=== PATIENT | male | born 1940 | race Caucasian/White ===

== ENCOUNTER 2019-04-11 11:55 | Emergency (ER) | payer BC, MEDICARE, OTHER ==
--- OUTSIDE RECORDS SUMMARY | 2019-04-11 12:09 | XMS REPORT | Continuity of Care Document ---
:1940 External Reference #:[id number] Author Name Chung Rodriguez MD Address [address] [place] [address] Care Team Providers Name Role Phone Eliane Faye DMD - Dentist Care Team Information Printer Assistant Vesna Dya MD - Family Care Team Information Printer Assistant Medicine Problems Active Problems Provider Date Allergy status to penicillin Chung Rodriguez MD Onset: 03/31/2019 Social History Type Date Description Comments Sex Unknown Tobacco Use Start: Unknown Patient has never smoked Smoking Status Reviewed: 03/31/19 Patient has never smoked Allergies, Adverse Reactions, Alerts Active Allergies Reaction Severity Comments Date Clindamycin 03/31/2019 Inactive Allergies NKDA 03/31/2019 Medications Active Medications SIG Qnty Indications Ordering Provider Date Co-Enzyme Q-10 2 by mouth every 30caps Chung Rodriguez 03/31/2019 100mg day MD [facility] Capsules See Scanned Chung Rodriguez 03/31/2019 Medication List. MD [facility] Amoxicillin for supervised 100ml Z88.0 Chung Rodriguez 03/31/2019 200mg/5ML oral challenge in MD [facility] Suspension Rec the office. Atorvastatin Calcium Unknown 40mg Tablets Aspirin 81 1 by mouth every Unknown 81mg day - otc Tablets Vitamin D-3 Unknown 5000Unit Tablets Vitamin K2 Unknown 100mcg Capsules Tocotrienols Unknown 50% Suspension Lutein Unknown 20mg Capsules Immunizations Description No Information Available Vital Signs Date Vital Result Comment 03/31/2019 2:04pm BP Systolic 96 mmHg BP Diastolic 64 mmHg Height 67 inches 5'7" Weight 165.00 lb BMI (Body Mass Index) 25.8 kg/m2 Heart Rate 82 /min Respiratory Rate 16 /min O2 % BldC Oximetry 95 % Results Test Date Facility Test Result H/L Range Note Order 03/31/2019 [facility] Intradermal <pending> Drug/Venom Procedures Date Code Description Status 03/31/2019 88690 Allergy Testing Any Combination Of Percutaneous W/Drugs Completed Medical Devices Description No Information Available Encounters Description No Information Available Assessments Date Code Description Provider 03/31/2019 Z88.0 Allergy status to penicillin Chung Rodriguez MD Plan of Treatment 03/31/2019 - Chung Rodriguez MDZ88.0 Allergy status to penicillinNew Medication:Amoxicillin 200 mg/5ML - for supervised oral challenge in the office. Functional Status Description No Information Available Mental Status Description No Information Available Referrals Description No Information Available
--- OUTSIDE RECORDS SUMMARY | 2019-04-11 12:09 | XMS REPORT | Continuity of Care Document ---
:1940 External Reference #:[id number] Author Name Becky Torrez Care Team Providers Name Role Phone Eliane Faye DMD - Dentist Care Team Information Deputy Jailer Vesna Day MD - Family Care Team Information Deputy Jailer Medicine Problems Active Problems Provider Date Allergy status to penicillin Chnug Rodriguez MD Onset: 03/31/2019 Social History Type [...] every Unknown 81mg day - otc Tablets DR Vitamin D-3 Unknown 5000Unit Tablets Vitamin K2 Unknown 100mcg Capsules Tocotrienols Unknown 50% Suspension Lutein Unknown 20mg Capsules Immunizations Description No Information Available Vital Signs Date Vital Result Comment 04/02/2019 2:07pm BP Systolic 137 mmHg BP Diastolic 76 mmHg Height 67 inches 5'7" Weight 165.00 lb BMI (Body Mass Index) 25.8 kg/m2 Heart Rate 83 /min O2 % BldC Oximetry 96 % 03/31/2019 2:04pm BP Systolic 96 mmHg BP Diastolic 64 mmHg Height 67 inches 5'7" Weight 165.00 lb BMI (Body Mass Index) 25.8 kg/m2 Heart Rate 82 /min Respiratory Rate 16 /min O2 % BldC Oximetry 95 % Results Test Date Facility Test Result H/L Range Note Order 03/31/2019 [facility] Intradermal <pending> Drug/Venom Procedures Date Code Description Status 03/31/2019 44528 Allergy Testing Any Combination Of Percutaneous W/Drugs Completed Medical Devices Description No Information Available Encounters Type Date Location Provider Dx Diagnosis Office Visit 03/31/2019 [place] Chung Rodriguez Z88.0 Allergy status to 2:00p penicillin Assessments Date Code Description Provider 03/31/2019 Z88.0 Allergy status to penicillin Chung Rodriguez MD Plan of Treatment 03/31/2019 - Chung Rodriguez MDZ88.0 Allergy status to penicillinNew Medication:Amoxicillin 200 mg/5ML - for supervised oral challenge in the office. Functional Status Description No Information Available Mental Status Description No Information Available Referrals Description No Information Available
--- OUTSIDE RECORDS SUMMARY | 2019-04-11 12:09 | XMS REPORT | Continuity of Care Document ---
:1940 External Reference #:[id number] Author Name Vesna Day MD Address [address] [place] [id number] Care Team Providers Name Role Phone Jace Ruthjeev Care Team Information Waterproofing Machine Operator [phone] Emmanuel Torres - Orthopaedic Care Team Information Waterproofing Machine Operator [facility] [place] - Pain Care Team Information Waterproofing Machine Operator Medicine [facility] Care Team Information Waterproofing Machine Operator Diana Scott - Gastroenterology Care Team Information Waterproofing Machine Operator [facility] Care Team Information Waterproofing Machine Operator [phone] Casimiro Walden - Orthopaedic Surgery Care Team Information Waterproofing Machine Operator [phone] Pratibha Rodriguez MD - Cardiovascular Care Team Information Waterproofing Machine Operator Disease Douglas Erazo - Cardiovascular Care Team Information Waterproofing Machine Operator [phone] Disease Problems Active Problems Provider Date Sciatica Vesna Day MD Onset: 12/21/2011 Hypervitaminosis D Vesna Day MD Onset: 06/19/2011 Bundle branch block Vesna Day MD Onset: 12/15/2010 Herpes zoster with complication Vesna Day MD Onset: 12/07/2008 Benign prostatic hypertrophy without outflow Vesna Day MD Onset: 11/2007 obstruction Raised prostate specific antigen Mackenzie Lainez MD Onset: 12/25/2006 Contact dermatitis due to non-medicinal Vesna Day MD Onset: 2004 chemical Benign neoplasm of colon Vesna Day MD Onset: 05/15/2005 Right bundle branch block Vesna Day MD Onset: 05/13/2005 Mixed hyperlipidemia Vesna Day MD Onset: 05/13/2005 Sarcoidosis Vesna Day MD Onset: 03/27/2018 Gastroesophageal reflux disease Vesna Day MD Onset: 03/27/2018 Chronic kidney disease stage 3 Vesna Day MD Onset: 03/27/2018 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 Family history of prostate cancer Vesna Day MD Onset: 06/24/2018 Hearing loss Vesna Day MD Onset: 06/24/2018 Coronary arteriosclerosis Vesna Day MD Onset: 12/26/2018 History of coronary artery bypass grafting Vesna Day MD Onset: 2018 Prosthetic arthroplasty of the hip Vesna Day MD Onset: 12/26/2018 Social History Type Date Description Comments Sex Unknown ETOH Use Occasionally consumes alcohol Tobacco Use Start: Unknown Patient has never smoked Recreational Drug Use Denies Drug Use Smoking Status Reviewed: 06/24/18 Patient has never smoked Exercise Type/Frequency Exercises regularly Exercises regularly, 06/30/2014 coiunselled 150min per week, 10k steps per day Smoke Alarms Yes Allergies, Adverse Reactions, Alerts Active Allergies Reaction Severity Comments Date Demerol Extreme vomitting 06/26/2016 Gluten 03/27/2018 Pineapple 03/27/2018 Peanuts 03/27/2018 Tomatoes 03/27/2018 coffee 12/26/2018 Potatoes 12/26/2018 Shrimp 12/26/2018 TUNA 12/26/2018 Bananas 12/26/2018 [place] 12/26/2018 Oranges 12/26/2018 Pork-Derived Products 12/26/2018 Metoprolol Hypotension Severe 03/02/2019 Inactive Allergies NKDA 12/31/2014 Medications Active Medications SIG Qnty Indications Ordering Provider Date Aspirin Ec Low Dose 1 by mouth 30tabs E78.2 Vesna Day, 03/27/2019 81mg every day Tablets I25.10 Potassium Chloride ER 1 by mouth daily 90caps I25.10 Vesna Day MD 03/05/2019 10Meq Capsules ER Atorvastatin Calcium 1 by mouth every 90tabs E78.2 Vesna Day MD 40mg day Tablets I25.10 Bumetanide 1 po daily prn edema R60.9 Unknown 07/29/2018 1mg Tablets Co Q10 1 by mouth every day 90caps E78.2 Vesna Day, 12/31/2014 200mg Capsules MD Magnesium Magnesium/ L/ Vesna Day, 12/31/2014 500mg Capsules Threonate 1 by mouth every day Multivitamin Adult 7 tabs by mouth Unknown Tablets every day Vitamin C Unknown Vitamin A qd Unknown 8000Unit Capsules Vitamin D 1 by mouth every day Unknown 2000Unit Capsules [facility] Natural Fish Oil Unknown 1000mg Capsules Vitamin B-12 1 by mouth every day Unknown Natural 500mcg Tablets [facility] Natural Lutein Eye Unknown Health 20mg Capsules Potassium Chloride Cristy TK 1 T PO qd In The Unknown ER Morning For 5 Days 20Meq Tablets ER Immunizations CPT Code Status Date Vaccine Reaction Lot # [id number] Given 05/30/2018 Fluzone Highdose Age 65 And Over Preservative & Antibiotic Free Q2036 Given 04/04/2017 Flulaval Immunization [facility] 47765 Given 04/12/2016 Fluzone Highdose Age 65 And Over Preservative & Antibiotic Free 92090 Given 04/08/2015 Fluzone Highdose Age 65 And Over RA Preservative & Antibiotic Free 98407 Given 12/31/2014 Prevnar 13 Pneumococal Conjugate Vaccine [id number] 58798 Given 03/08/2014 Afluria Or Fluvirin Flu Vac Intramuscular 08684 Given 07/01/2013 Tdap (Adacel) Ages 7 And Above Only 33036 Given 04/17/2012 Afluria Or Fluvirin Flu Vac Intramuscular 66086 Given 04/17/2011 Code For Flu Shot 69553 Given 04/05/2010 Afluria Or Fluvirin Flu Vac Intramuscular 23842 Given 12/03/2008 Pneumococcal 23 Immunization Adult Or Immunosuppressed Patient 15882 Given 03/02/2008 Tetanus And Diptheria Toxoids For Adult Use-preservative free 67161 Given 12/25/2006 Pneumococcal 23 Immunization Adult Or Immunosuppressed Patient 61359 Given 06/06/2006 Afluria Or Fluvirin Flu Vac Intramuscular 07069 Given 07/29/1997 Tetanus And Diptheria Toxoids For Adult Use-preservative free Q2039 Refused 03/02/2019 Flu Vaccine NOS will get in fall 92383 Refused 06/24/2018 Shingrix (Shingles) Zoster Vaccine will get in [place] HZV, Recombinant, Subunit, Adj [id number] Refused 06/21/2015 Zoster (Zostavax) Vital Signs Date Vital Result Comment 03/27/2019 1:00pm Weight 167.00 lb Heart Rate 76 /min BP Systolic 120 mmHg BP Diastolic 64 mmHg Respiratory Rate 14 /min Height 67 inches 5'7" BMI (Body Mass Index) 26.2 kg/m2 03/02/2019 1:48pm Weight 172.00 lb Heart Rate 78 /min BP Systolic 112 mmHg BP Diastolic 62 mmHg Respiratory Rate 16 /min Height 67 inches 5'7" BMI (Body Mass Index) 26.9 kg/m2 Results Test Date Facility Test Result H/L Range Note Comprehensive Met Panel-[facility] 03/20/2019 [facility] Sodium 141 mmol/L 135- 146 1, 2 Potassium 4.1 mmol/L 3.5-5.2 Chloride# 104 mmol/L 97-110 3 Carbon Dioxide 29 mmol/L 24-34 Calcium 9.8 mg/dL 8.5-10.5 4 Glucose 93 mg/dL 70-105 BUN 18 mg/dL 6-26 Creatinine 1.4 mg/dL 0.5-1.4 Total Protein 6.4 g/dL 6.0-8.0 Albumin 4.1 g/dL 3.6-4.9 Globulin 2.3 g/dL 2.0-3.5 A/G Ratio 1.8 Ratio 1.0-2.2 Total Bilirubin 0.6 mg/dL 0.1-1.3 Alkaline Phosphatase 107 U/L 24-140 Alt 33 U/L 3-42 Ast 31 U/L 8-42 Anion Gap 8 mmol/L 5-15 5 Female Egfr 36 Low >60 6 Male Egfr 48 Low >60 7 Laboratory test finding 03/20/2019 [facility] CPK 75 U/L 12-199 Lipid 03/20/2019 [facility] Cholesterol 167 mg/dL 50-199 Triglycerides 70 mg/dL 30-200 HDL 65 mg/dL 29-71 8 Chol/ HDL Ratio 2.6 ratio Low 4.0-6.7 VLDL 14 mg/dL 2-29 LDL (Calc) 88 mg/dL 20-99 9 Laboratory test finding 03/20/2019 [facility] TSH 4.79 uIU/mL 0.35-4.94 CBC with Auto Diff-[facility] 03/20/2019 [facility] WBC 5.2 K/uL 4.1-11.0 RBC 4.39 M/uL Low 4.60-6.10 Hemoglobin 14.9 gm/dL 13.5-18.0 Hematocrit 42.9 % 41.0-53.0 MCV 97.9 fL High 80.0-97.0 MCH 33.9 pg High 27.0-32.0 MCHC 34.6 g/dL 32.0-36.0 RDW 15.2 % High 11.5-14.5 PLT Count 189 K/ul 140-400 MPV 9.5 FL 7.1-10.7 Neutrophil 68.3 % 35.0-75.0 Lymphocyte 13.0 % Low 16.0-52.0 Monocyte 12.3 % High 2.0-10.0 Eosinophil 5.7 % High 0.0-5.0 Basophil 0.7 % 0.0-4.0 Abs Neutrophils 3.5 K/uL 2.1-8.0 Abs Lymphocytes 0.7 K/uL Low 0.8-5.5 Abs Monocytes 0.6 K/uL 0.1-1.0 Abs Eosinophils 0.3 K/uL 0.0-0.5 Abs Basophils 0.0 K/uL 0.0-0.3 Laboratory test finding 03/20/2019 [facility] Iron, Total 74 g/dL 65-175 Comprehensive Met 03/02/2019 [facility] Sodium 138 mmol/L 135-146 10, 11 Panel[facility] Potassium 3.4 mmol/L Low 3.5-5.2 Chloride# 103 mmol/L 97-110 12 Carbon Dioxide 27 mmol/L 24-34 Calcium 8.8 mg/dL 8.5-10.5 13 Glucose 93 mg/dL 70-105 BUN 15 mg/dL 6-26 Creatinine 1.3 mg/dL 0.5-1.4 Total Protein 5.5 g/dL Low 6.0-8.0 Albumin 3.4 g/dL Low 3.6-4.9 Globulin 2.1 g/dL 2.0-3.5 A/G Ratio 1.6 Ratio 1.0-2.2 Total Bilirubin 0.8 mg/dL 0.1-1.3 Alkaline Phosphatase 130 U/L 24-140 Alt 96 U/L High 3-42 Ast 71 U/L High 8-42 Anion Gap 8 mmol/L 5-15 14 Female Egfr 38 Low >60 15 Male Egfr 51 Low >60 16 Laboratory test finding 02/27/2019 [facility] CK 85 U/L Normal 39-308 17 (315)- - Troponin-I < 0.015 ng/mL 18 Comprehensive Metabolic 02/27/2019 [facility] Glucose 121 mg/dL High 74-106 Panel (315)- - BUN 24 mg/dL High 7-18 Creatinine 1.8 mg/dL High 0.6-1.3 Glom Filtration Rate, Estimate 39 mL/min >60 If 47 mL/min >60 19 BUN/Creat 13.3 ratio Sodium 139 mmol/L Normal 136-145 Potassium 3.6 mmol/L Normal 3.5-5.1 Chloride 103 mmol/L Normal 98-107 Carbon Dioxide 30 mmol/L Normal 21-32 Anion Gap 6 mEq/L Low 8-16 Calcium 9.4 mg/dL Normal 8.5-10.1 Total Protein 6.4 g/dL Normal 6.4-8.2 Albumin 3.3 g/dL Low 3.4-5.0 Globulin 3.1 g/dL Normal 1.9-4.3 Alb/Glob 1.1 ratio Bilirubin,Total 1.0 mg/dL Normal 0.2-1.0 Sgot/Ast 159 U/L High 15-37 SGPT/Alt 177 U/L High 12-78 Alkaline Phosphatase 186 U/L High 45-117 CBS W/Automated 02/27/2019 [facility] White Blood 7.6 K/ uL Normal 3.4-10.5 Diff (315)- - Count Red Blood Count 4.21 M/uL Normal 4.20-5.80 Hemoglobin 14.1 gm/dL Normal 12.8-17.0 Hematocrit 41.2 % Normal 38.0-48.0 Mean Cell Volume 97.9 fl High 80.0-96.0 Mean Corpuscular HGB 33.5 pg High 27.0-33.0 Mean Corpuscular HGB Conc 34.2 g/dL Normal 31.7-36.0 Platelet Count 134 K/uL Low 155-360 Red Cell Distri Width SD 54.9 fl High 36-51 Red Cell Distri Width %CV 15.3 % Normal 11.6-15.8 Mean Platelet Volume 11.3 fl High 6.6-10.6 Neut% 74.4 % High 33.0-73.0 Lymph % 10.8 % Low 20.0-42.0 Pope % 8.7 % Normal 0.0-10.0 Eo% 5.3 % Normal 0.0-6.6 Bas% 0.4 % Normal 0.0-1.1 Immature Grans 0.4 % Normal 0.0-5.0 NRBC % 0.0 /100WBC < 10/ 100 WBC Neut# 5.66 K/uL Normal 1.8-7.0 Lymph # 0.82 K/uL Low 1.0-4.0 Pope # 0.66 K/uL Normal 0.0-0.8 Eos # 0.40 K/uL Normal 0.0-0.5 Baso # 0.03 K/uL Normal 0.0-0.1 Immature Grans Absolute 0.03 K/uL NRBC # 0.00 K/uL Ua RFX Micro & 02/27/2019 [facility] Urine Color YELLOW Yellow Culture II (315)- - Urine Clarity CLEAR Clear Urine Glucose - Dipstick NEGATIVE mg/dL Negative Urine Bilirubin - Dipstick NEGATIVE Negative Urine Ketone TRACE mg/dL High Negative Urine Specific [place] 1.010 Normal 1.010-1.030 Urine Blood NEGATIVE Negative Urine PH 6.5 Normal 6.5-7.5 Urine Protein - Dipstick NEGATIVE mg/dL Negative Urine Urobilinogen - Dipstick 0.2 E.U./dL Normal 0.2-1.0 Urine Nitrite - Dipstick NEGATIVE Negative Urine Leuk Esterase NEGATIVE Negative Source: URINE, CLEAN CAT <SEE NOTE> 20 Laboratory test finding 12/26/2018 [facility] TSH 4.28 uIU/mL 0.35-4.94 21 CBC with Auto Diff-[facility] 12/26/2018 [facility] WBC 8.0 K/uL 4.1-11.0 RBC 4.37 M/uL Low 4.60-6.10 Hemoglobin 13.7 gm/dL 13.5-18.0 Hematocrit 40.6 % Low 41.0-53.0 MCV 92.9 fL 80.0-97.0 MCH 31.3 pg 27.0-32.0 MCHC 33.7 g/dL 32.0-36.0 RDW 18.5 % High 11.5-14.5 PLT Count 179 K/ul 140-400 MPV 10.1 FL 7.1-10.7 Neutrophil 79.5 % High 35.0-75.0 Lymphocyte 8.7 % Low 16.0-52.0 Monocyte 9.1 % 2.0-10.0 Eosinophil 1.6 % 0.0-5.0 Basophil 1.1 % 0.0-4.0 Abs Neutrophils 6.3 K/uL 2.1-8.0 Abs Lymphocytes 0.7 K/uL Low 0.8-5.5 Abs Monocytes 0.7 K/uL 0.1-1.0 Abs Eosinophils 0.1 K/uL 0.0-0.5 Abs Basophils 0.1 K/uL 0.0-0.3 Iron Panel 12/26/2018 [facility] Iron, Total 87 g/dL 65-175 Transferrin 218.0 mg/dL 203.0-362.0 Tibc (calc) 305 g/dL 261-478 % Iron Saturation 28.5 % 13.0-45.0 Comprehensive Met Panel[place] 12/19/2018 [facility] Sodium 139 mmol/L 135- 146 22, 23 Potassium 4.3 mmol/L 3.5-5.2 Chloride# 102 mmol/L 97-110 24 Carbon Dioxide 26 mmol/L 24-34 Calcium 9.6 mg/dL 8.5-10.5 25 Glucose 96 mg/dL 70-105 BUN 23 mg/dL 6-26 Creatinine 1.6 mg/dL High 0.5-1.4 Total Protein 6.4 g/dL 6.0-8.0 Albumin 4.1 g/dL 3.6-4.9 Globulin 2.3 g/dL 2.0-3.5 A/G Ratio 1.8 Ratio 1.0-2.2 Total Bilirubin 0.5 mg/dL 0.1-1.3 Alkaline Phosphatase 83 U/L 24-140 Alt 35 U/L 3-42 Ast 34 U/L 8-42 Anion Gap 11 mmol/L 5-15 26 Female Egfr 30 Low >60 27 Male Egfr 40 Low >60 28 Lipid 12/19/2018 [facility] Cholesterol 122 mg/dL 50-199 Triglycerides 84 mg/dL 30-200 HDL 48 mg/dL 29-71 29 Chol/ HDL Ratio 2.5 ratio Low 4.0-6.7 VLDL 17 mg/dL 2-29 LDL (Calc) 57 mg/dL 20-99 30 CBC with Auto Diff-[facility] 12/19/2018 [facility] WBC 5.9 K/uL 4.1-11.0 RBC 4.41 M/uL Low 4.60-6.10 Hemoglobin 13.9 gm/dL 13.5-18.0 Hematocrit 40.6 % Low 41.0-53.0 MCV 92.2 fL 80.0-97.0 MCH 31.5 pg 27.0-32.0 MCHC 34.2 g/dL 32.0-36.0 RDW 18.1 % High 11.5-14.5 PLT Count 179 K/ul 140-400 MPV 10.5 FL 7.1-10.7 Neutrophil 71.2 % 35.0-75.0 Lymphocyte 11.6 % Low 16.0-52.0 Monocyte 11.9 % High 2.0-10.0 Eosinophil 4.7 % 0.0-5.0 Basophil 0.6 % 0.0-4.0 Abs Neutrophils 4.2 K/uL 2.1-8.0 Abs Lymphocytes 0.7 K/uL Low 0.8-5.5 Abs Monocytes 0.7 K/uL 0.1-1.0 Abs Eosinophils 0.3 K/uL 0.0-0.5 Abs Basophils 0.0 K/uL 0.0-0.3 Laboratory test finding 12/19/2018 [facility] Ang Convert Enz BLD 30 U/L 31 1 before visit 02/2019 2 Updated reference range on new analyzer 3 Updated reference range on new analyzer 4 Updated reference range 11-26-2018 5 Updated Reference Range 6 Concerning GFR Guidelines for Americans: Normal function or mild renal disease, if clinically at risk: >/= 60 mL/min Moderately decreased: 30-59 Severely decreased: 15-29 Renal failure: <15 There is reduced accuracy above 60ml/min/1.73 m squared, but the numeric value may be clinically useful in the near 60 range 7 Concerning GFR Guidelines: Normal function or mild renal disease, if clinically at risk: >/= 60 mL/min Moderately decreased: 30-59 Severely decreased: 15-29 Renal failure: <15 There is reduced accuracy above 60ml/min/1.73 m squared, but the numeric value may be clinically useful in the near 60 range Glomerular Filtration Rate (GFR) is estimated based on the CKD-EPI equation, which assumes a steady state for creatinine as recommended by the National Kidney Disease Education Program in conjunction with the National Institutes of Health and the National Kidney Foundation. Clinical conditions in which it may be necessary to measure GFR by using clearance methods include extremes of age and body size, severe malnutrition or obesity, diseases of skeletal muscle, paraplegia or quadriplegia, vegetarian diet, rapidly changing kidney function, and calculation of the dose of potentially toxic drugs that are excreted by the kidneys. 8 Per NCEP ATP III Guidelines: Results lower than 40 mg/dL are suggestive of increased risk for coronary artery disease. Results > or = to 60 mg/dL are considered a negative risk factor. 9 Per NCEP ATP III Guidelines: Normal Population <130 Patients with medical conditions: CHD/DM Optimal: <100 Borderline high: 130-159 High: 160-189 Very high: >189 10 tody letter 11 Updated reference range on new analyzer 12 Updated reference range on new analyzer 13 Updated reference range 11-26-2018 14 Updated Reference Range 15 Concerning GFR Guidelines for Americans: Normal function or mild renal disease, if clinically at risk: >/= 60 mL/min Moderately decreased: 30-59 Severely decreased: 15-29 Renal failure: <15 There is reduced accuracy above 60ml/min/1.73 m squared, but the numeric value may be clinically useful in the near 60 range 16 Concerning GFR Guidelines: Normal function or mild renal disease, if clinically at risk: >/= 60 mL/min Moderately decreased: 30-59 Severely decreased: 15-29 Renal failure: <15 There is reduced accuracy above 60ml/min/1.73 m squared, but the numeric value may be clinically useful in the near 60 range Glomerular Filtration Rate (GFR) is estimated based on the CKD-EPI equation, which assumes a steady state for creatinine as recommended by the National Kidney Disease Education Program in conjunction with the National Institutes of Health and the National Kidney Foundation. Clinical conditions in which it may be necessary to measure GFR by using clearance methods include extremes of age and body size, severe malnutrition or obesity, diseases of skeletal muscle, paraplegia or quadriplegia, vegetarian diet, rapidly changing kidney function, and calculation of the dose of potentially toxic drugs that are excreted by the kidneys. 17 LOW BLOOD PRESSURE, DR CHERELLE OLSON FULL BLOOD WORK 18 0.0 - 0.045 ng/mL: Normal 0.046 - 0.5 ng/mL: Suggestive 0.6 - 1.5 ng/mL: Consistent 19 Note: Persistent reduction for 3 months or more in an eGFR <60 mL/min/1.73 m2 defines CKD. Patients with eGFR values >/=60 mL/min/1.73 m2 may also have CKD if evidence of persistent proteinuria is present. The original MDRD equation for estimated GFR is not valid for patients less than 18 years of age. Additional information may be found at www.kdoqi.org. 20 URINE, CLEAN CATCH 21 now in net 1-2 weeks 22 -F [phone] P PLEASE CC TO DR BARDALES 23 Updated reference range on new analyzer 24 Updated reference range on new analyzer 25 Updated reference range 11-26-2018 26 Updated Reference Range 27 Concerning GFR Guidelines for Americans: Normal function or mild renal disease, if clinically at risk: >/= 60 mL/min Moderately decreased: 30-59 Severely decreased: 15-29 Renal failure: <15 There is reduced accuracy above 60ml/min/1.73 m squared, but the numeric value may be clinically useful in the near 60 range 28 Concerning GFR Guidelines: Normal function or mild renal disease, if clinically at risk: >/= 60 mL/min Moderately decreased: 30-59 Severely decreased: 15-29 Renal failure: <15 There is reduced accuracy above 60ml/min/1.73 m squared, but the numeric value may be clinically useful in the near 60 range Glomerular Filtration Rate (GFR) is estimated based on the CKD-EPI equation, which assumes a steady state for creatinine as recommended by the National Kidney Disease Education Program in conjunction with the National Institutes of Health and the National Kidney Foundation. Clinical conditions in which it may be necessary to measure GFR by using clearance methods include extremes of age and body size, severe malnutrition or obesity, diseases of skeletal muscle, paraplegia or quadriplegia, vegetarian diet, rapidly changing kidney function, and calculation of the dose of potentially toxic drugs that are excreted by the kidneys. 29 Per NCEP ATP III Guidelines: Results lower than 40 mg/dL are suggestive of increased risk for coronary artery disease. Results > or = to 60 mg/dL are considered a negative risk factor. 30 Per NCEP ATP III Guidelines: Normal Population <130 Patients with medical conditions: CHD/DM Optimal: <100 Borderline high: 130-159 High: 160-189 Very high: >189 31 Reference range: 9 to 67 Performed by [facility], [address] [place] [id number] [email or web address], Maksim Dias MD, Lab. Director Unless otherwise specified, testing performed by [facility] [address] [place] [address] Procedures Date Code Description Status 01/17/2017 [id number] Colonoscopy Completed Medical Devices Description No Information Available Encounters Type Date Location Provider Dx Diagnosis Office Visit 03/02/2019 [facility] Vesna Day, I95.9 Hypotension, 1:45p unspecified D86.0 Sarcoidosis of lung I25.10 Athscl heart disease of [place] coronary artery w/o ang pctrs R94.5 Abnormal results of liver function studies E86.0 Dehydration Z68.27 Body mass index (BMI) 27.0-27.9, adult Z68.26 Body mass index (BMI) 26.0-26.9, adult Office Visit 12/26/2018 1:15p [facility] Vesna Day MD I25.10 Athscl heart disease of [place] coronary artery w/o ang pctrs E78.2 Mixed hyperlipidemia D86.0 Sarcoidosis of lung K21.9 Gastro-esophageal reflux disease without esophagitis N18.3 Chronic kidney disease, stage 3 (moderate) M51.06 Intervertebral disc disorders with myelopathy, lumbar region N40.0 Benign prostatic hyperplasia without lower urinry tract symp Z95.1 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 Rash and other nonspecific skin eruption R60.9 Edema, unspecified Z68.26 Body mass index (BMI) 26.0-26.9, adult B02.8 Zoster with other complications Z96.642 Presence of LEFT artificial hip joint Assessments Date Code Description Provider 03/27/2019 I25.10 Atherosclerotic heart disease of [place] Vesna Day MD coronary artery with 03/27/2019 E78.2 Mixed hyperlipidemia Vesna Day MD 03/27/2019 D50.0 Iron deficiency anemia secondary to blood Vesna Day MD loss (chronic) 03/27/2019 D86.0 Sarcoidosis of lung Vesna Day MD 03/27/2019 K21.9 Gastro-esophageal reflux disease without Vesna Day MD esophagitis 03/27/2019 M51.06 Intervertebral disc disorders with Vesna Day MD myelopathy, lumbar region 03/27/2019 N40.0 Benign prostatic hyperplasia without lower Vesna Day MD urinary tract sym 03/27/2019 Z95.1 Presence of aortocoronary bypass graft Vesna Day MD 03/27/2019 N18.3 Chronic kidney disease, stage 3 (moderate) Vesna Day MD 03/27/2019 R60.9 Edema, unspecified Vesna Day MD 03/27/2019 E87.6 Hypokalemia Vesna Day MD 03/27/2019 Z68.26 Body mass index (BMI) 26.0-26.9, adult Vesan Day MD 03/20/2019 E78.2 Mixed hyperlipidemia Vesna Day MD 03/20/2019 E78.2 Mixed hyperlipidemia Schedule, Laboratory 03/20/2019 D50.0 Iron deficiency anemia secondary to blood Vesna Day MD loss (chronic) 03/20/2019 D50.0 Iron deficiency anemia secondary to blood Schedule, Laboratory loss (chronic) 03/20/2019 E78.2 Mixed hyperlipidemia [facility] 03/20/2019 D50.0 Iron deficiency anemia secondary to blood [facility] loss (chronic) 03/02/2019 R94.5 Abnormal results of liver function studies Kirstie Lang MD 03/02/2019 I95.9 Hypotension, unspecified Vesna Day MD 03/02/2019 E86.0 Dehydration Kirstie Lang MD 03/02/2019 D86.0 Sarcoidosis of lung Vesna Day MD 03/02/2019 I25.10 Atherosclerotic heart disease of [place] Vesna Day MD coronary artery with 03/02/2019 R94.5 Abnormal results of liver function studies Vesna Day MD 03/02/2019 E86.0 Dehydration Vesna Day MD 03/02/2019 Z68.27 Body mass index (BMI) 27.0-27.9, adult Vesna Day MD 03/02/2019 Z68.26 Body mass index (BMI) 26.0-26.9, adult Vesna Day MD 03/02/2019 R94.5 Abnormal results of liver function studies Schedule, Laboratory 03/02/2019 E86.0 Dehydration Schedule, Laboratory 03/02/2019 R94.5 Abnormal results of liver function studies [facility] 03/02/2019 E86.0 Dehydration [facility] 12/26/2018 I25.10 Atherosclerotic heart disease of [place] Vesna Day MD coronary artery without angina pectoris 12/26/2018 I25.10 Atherosclerotic heart disease of [place] Vesna Day MD coronary artery with 12/26/2018 E78.2 Mixed hyperlipidemia Vesna Day MD 12/26/2018 D86.0 Sarcoidosis of lung Vesna Day MD 12/26/2018 E78.2 Mixed hyperlipidemia [facility] 12/26/2018 K21.9 Gastro-esophageal reflux disease without Vesna Day MD esophagitis 12/26/2018 N18.3 Chronic kidney disease, stage 3 (moderate) Vesna Day MD 12/26/2018 D50.0 Iron deficiency anemia secondary to blood Vesna Day MD loss (chronic) 12/26/2018 M51.06 Intervertebral disc disorders with Vesna Day MD myelopathy, lumbar region 12/26/2018 N40.0 Benign prostatic hyperplasia without lower Vesna Day MD urinary tract sym 12/26/2018 Z95.1 Presence of aortocoronary bypass graft Vesna Day MD 12/26/2018 D50.0 Iron deficiency anemia secondary to blood Vesna Day MD loss (chronic) 12/26/2018 R21 Rash and other nonspecific skin eruption Vesna Day MD 12/26/2018 R60.9 Edema, unspecified Vesna Day MD 12/26/2018 Z68.26 Body mass index (BMI) 26.0-26.9, adult Vesna Day MD 12/26/2018 B02.8 Zoster with other complications Vesna Day MD 12/26/2018 Z96.642 Presence of LEFT artificial hip joint Vesna Day MD 12/26/2018 I25.10 Athscl heart disease of [place] coronary Schedule, Laboratory artery w/o ang pctrs 12/26/2018 D50.0 Iron deficiency anemia secondary to blood Schedule, Laboratory loss (chronic) 12/26/2018 I25.10 Athscl heart disease of [place] coronary [facility] artery w/o ang pctrs 12/26/2018 D50.0 Iron deficiency anemia secondary to blood [facility] loss (chronic) 12/19/2018 D86.0 Sarcoidosis of lung Vesna Day MD 12/19/2018 D86.0 Sarcoidosis of lung Schedule, Laboratory 12/19/2018 E78.2 Mixed hyperlipidemia Vesna Day MD 12/19/2018 E78.2 Mixed hyperlipidemia Schedule, Laboratory 12/19/2018 K21.9 Gastro-esophageal reflux disease without Vesna Day MD esophagitis 12/19/2018 K21.9 Gastro-esophageal reflux disease without Schedule, Laboratory esophagitis 12/19/2018 E78.2 Mixed hyperlipidemia [facility] 12/19/2018 K21.9 Gastro-esophageal reflux disease without [facility] esophagitis Plan of Treatment Future Appointment(s):06/03/2019 2:00 pm - Vesna Day MD at [facility]2018 - Vesna Day MDI25.10 Atherosclerotic heart disease of [place] coronary artery withNew Medication:Aspirin Ec Low Dose 81 mg - 1 by mouth every dayNew Labs:Vitamin B12, Ordered: 03/27/19Comments:CAD--Patient appears stable without symptoms, sp CABG x 5 on 07/17/[address] Callahan in [place], card with Dr Quezada. Advised to continue meds to control risk factors, statin therapy and BP control.aspirin 81mg EC, no clopidigrel or acei per biometrics experimentalist. No metoprolol due to low bp Encouraged continued healthy diet modified in fat and cholesterol with regular daily exercise. Call for symptoms of chest pressure, pain tightness, at rest or with exertion, or increasing SOB/developing exercise intolerance. Call for concerns.Follow up:bmp in 4 weeks; nexgt visit as planned , nonfasting labs 5 day bgrqofZ47.2 Mixed hyperlipidemiaNew Medication:Aspirin Ec Low Dose 81 mg - 1 by mouth every dayNew Labs:Comprehensive Met Panel-[facility], Ordered: 03/27/19CPK, Ordered: 03/27/19Lipid, Ordered: 03/27/19Comments:high cholpatient is very high risk per AHA 2018 guidelines and assessment LDL shows a more than 50%reductioncontinue current meds. monitor for side effects of muscle aches or cramps, no grapefruit wewatch for liver effects with labsPlease call if you have any concerns.Aspirin enteric coated 325mg daily per biometrics experimentalist, is also recommended. It no longer needs to be enteric coated. Take with food.For lifestyle, we also recommend: Low fat ( under 30gm per day), low chol diet ( under 300mg per day chol)focus on lean meat, nonfat 1% dairy, increased veg and fruit, whole grains weight lossexercise build to at least 30min per day. Reviewed signs and symptoms of cardiovascular disease.D50.0 Iron deficiency anemia secondary to blood loss (chronic)New Labs:CBC with Auto Diff- [facility], Ordered: 03/27/19Comments:recheck labs now shows blood count in better range, iron is in better range, will track cbc, continue iron rich diet. likely due to hpiotowB55.0 Sarcoidosis of lungComments:sarcoidosis, no symptoms, also with interstitial lung diseaseACE level at 30, up from prior values but not considered high fu with Dr French in [place] Let me know if you want a referral.K21.9 Gastro-esophageal reflux disease without esophagitisComments: Esophageal reflux--Symptoms moderately well controlled on no meds. . Reminded pt we need to controlthe symptoms as those symptoms would be signs of gastric acid eroding on the esophagus, which can lead to complications. Call if has heartburn more than 2 - 3 times per week. 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 disc disorders with myelopathy, lumbar regionComments:lumbar disc disease has done treatment with radiofrequency ablation, and has had spine injections, [place] pediatric physician Pt needs to call/to ER if pain becomes severe, developsfasciculations, numbness, weakness or loss of bowel/bladder control.N40.0 Benign prostatic hyperplasia without lower urinary tract symComments:BPH care with Dr Morse95.1 Presence of aortocoronary bypass graftComments:care per Dr Callahan and DR Harrison [place] Chronic kidney disease, stage 3 (moderate)Comments:Chronic kidney disease stage 3, moderate Ultrasound to evaluate kidneys, ureters bladder--normal Creatinine stable 1.5- 1.6GFR 40s slowly dropping Recommend: continue good hydration target 80 oz total fluids per day. avoid nsaids/ibuprofen/aleve/etc, may take aspirinkeep tight control of blood pressure, goal under 140/90 at all times, best if under 130/80. cont observation care and let me know if wants to see vascular manager. he asks to take ibuprofen for dental procedure, advised may take a few days for the inflammation but don't take this for pain, use alternatives, and be sure to hydrate well ok for tylenol or tyl with lrtumqtE61.9 Edema, unspecifiedComments:dependent left leg edemabuy compression sock and put on in morning off at nightif this is not improving let m eknow he is also taking bumetanide as needed with 20mequ fytgrghgwP40.6 HypokalemiaNew Labs:Basic (BMP) , Ordered: 03/27/19Comments:potassium was low, we added 10 meq dqily, he would like to stop, advise we will need to make sure levels are in good range otherwise there is arrhythmia risk stop routine 10meq potassium, continue the 20meq potassium when taking bumetanide recheck potassium in 4 cyvnfU07.26 Body mass index (BMI) 26.0-26.9, adultComments:Recommend reduced calorie healthy diet and regular exercise to help with weight loss. Functional Status Functional Condition Comment Date Status Hearing Aid, left ear Active Mental Status Description No Information Available Referrals Refer to Reason for Referral Status Appt Date Pratibha Rodriguez MD new cardiac patient, 07/17/2019 with CABG x 5, I Closed 01/16 don't have recorsd yet, on amiodarone, probably shoudl stop due to rash , on only apsirin, no clopidogrel. I'm happt tomanage lipids and bp meds , has high chol, no htn. i called and spoke with patient and gave him appt information spoke with Kareen- patient kept appt and she is sending note now cm 01/[address] [place] [id number] [phone]
--- OUTSIDE RECORDS SUMMARY | 2019-04-11 12:09 | XMS REPORT | Continuity of Care Document ---
:1940 External Reference #:[id number] Author Name Chung Rodriguez MD (transmitted by agent of provider Hope Klein) Address [address] [place] [address] Care Team Providers Name Role Phone Eliane Faye DMD - Dentist Care Team Information Engineering Teacher [phone] Vesna Day MD - Family Care Team Information Engineering Teacher Medicine Problems Description No Information Available Social History Type Date Description Comments Sex Unknown Allergies, Adverse Reactions, Alerts Active Allergies Reaction Severity Comments Date Clindamycin 03/31/2019 Inactive Allergies NKDA 03/31/2019 Medications Active Medications SIG Qnty Indications Ordering Provider Date Atorvastatin Calcium Unknown 40mg Tablets Aspirin 81 1 by mouth every Unknown 81mg Tablets DR day - otc Immunizations Description No Information Available Vital Signs Date Vital Result Comment 03/31/2019 2:04pm BP Systolic 96 mmHg BP Diastolic 64 mmHg Height 67 inches 5'7" Weight 165.00 lb BMI (Body Mass Index) 25.8 kg/m2 Heart Rate 82 /min Respiratory Rate 16 /min O2 % BldC Oximetry 95 % Results Description No Information Available Procedures Description No Information Available Medical Devices Description No Information Available Encounters Description No Information Available Assessments Description No Information Available Plan of Treatment No Information Available Functional Status Description No Information Available Mental Status Description No Information Available Referrals Description No Information Available
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
[2019-04-11 15:53] VITALS: BP 107/75
== END 2019-04-11 15:55 | disposition home or self-care (01) ==
LOC: UCCORT 11:55
DX: R51 Headache (principal); S16.1XXA Strain of muscle, fascia and tendon at neck level, initial encounter; V43.92XA Unspecified car occupant injured in collision with other type car in traffic accident, initial encounter; Y92.410 Unspecified street and highway as the place of occurrence of the external cause; M47.812 Spondylosis without myelopathy or radiculopathy, cervical region; G93.89 Other specified disorders of brain; E78.5 Hyperlipidemia, unspecified; Z79.82 Long term (current) use of aspirin; Z95.1 Presence of aortocoronary bypass graft
CPT/HCPCS: 70450; 72125; 99211; G0463